=== PATIENT | female | born 1975 ===

== ENCOUNTER 2017-08-29 16:51 | Emergency (ER) | payer SELFPAY ==
[2017-08-29 16:51] VITALS: BMI 29.9
[2017-08-29 17:01] VITALS: BP 123/70; PULSE 73; RESP 16; TEMP 97.9; O2SAT 100
--- NOTE | 2017-08-29 17:35 | ED PDOC ---
HPI: Abdomen Time Seen by Provider: 08/29/17 17:03 Chief Complaint (Nursing): Abdominal Pain Chief Complaint (Provider): Abdominal Pain History Per: Patient History/Exam Limitations: no limitations Onset/Duration Of Symptoms: Hrs Outside of [place] travel?: No Current Symptoms Are (Timing): Still Present Severity: None Associated Symptoms: denies: Nausea, Vomiting, Diarrhea Exacerbating Factors: None Alleviating Factors: None Additional Complaint(s): 41 year old female presents to the ED complaining of abdominal pain tat began around 1300. The patient states that she has not had similar symptoms in the past. Patient reports her symptoms began after she had breakfast. Denies diarrhea and vomiting but does note some nausea. Abnormal Vaginal Bleeding: No Past Medical History Reviewed: Historical Data, Nursing Documentation, Vital Signs Vital Signs: Last Vital Signs Temp 97.9 F 08/29/17 16:59 Pulse 73 08/29/17 16:59 Resp 16 08/29/17 16:59 BP 123/70 08/29/17 16:59 Pulse Ox 100 08/30/17 02:30 - Medical History PMH: No Chronic Diseases Denies: Chronic Kidney Disease - Surgical History Surgical History: No Surg Hx - Family History Family History: States: Unknown Family Hx - Living Arrangements Living Arrangements: With Family - Social History Current smoker - smoking cessation education provided: No Ex-Smoker (has not smoked in the last 12 months): No Alcohol: None Drugs: Denies - Home Medications Home Medications: Ambulatory Orders Medication Instructions Recorded Amoxicillin/Clavulanate [Augmentin 1 tab PO BID #14 tab 08/29/17 875 MG-125 MG] Famotidine [Pepcid] 20 mg PO Q12 #14 tab 08/29/17 Ondansetron ODT [Zofran ODT] 4 mg PO Q6 PRN #16 odt 08/29/17 traMADol [Ultram] 50 mg PO Q6 #12 tab 08/29/17 - Allergies Allergies/Adverse Reactions: Allergies Allergy/AdvReac Type Severity Reaction Status Date / Time No Known Allergies Allergy Verified 09/01/14 10:55 Review of Systems ROS Statement: Except As Marked, All Systems Reviewed And Found Negative Gastrointestinal: Positive for: Abdominal Pain (epigastric). Negative for: Nausea, Vomiting, Diarrhea Physical Exam - Physical Exam Appears: Positive for: Non-toxic. Negative for: No Acute Distress (Moderate distress due to pain) Skin: Positive for: Normal Color. Negative for: Rash, Jaundice Eye Exam: Positive for: Normal appearance, EOMI, PERRL ENT: Positive for: Normal ENT Inspection (Well hydrated) Neck: Positive for: Normal, Painless ROM, Supple Cardiovascular/Chest: Positive for: Regular Rate, Rhythm, Chest Non Tender. Negative for: Tachycardia Respiratory: Positive for: Normal Breath Sounds. Negative for: Rales, Rhonchi, Wheezing, Respiratory Distress Gastrointestinal/Abdominal: Positive for: Bowel Sounds, Soft, Tenderness ( epigastric tenderness), Guarding. Negative for: Mass, Rebound Back: Positive for: Normal Inspection. Negative for: L CVA Tenderness, R CVA Tenderness Extremity: Positive for: Normal ROM. Negative for: Tenderness, Deformity, Swelling Neurologic/Psych: Positive for: Alert, Oriented, Gait - Laboratory Results Result Diagrams: 08/29/17 18:00 08/29/17 18:00 - ECG O2 Sat by Pulse Oximetry: 100 (RA) Pulse Ox Interpretation: Normal Medical Decision Making Medical Decision Makin Initial Impression Epigastric pain possible gallbladder disease Initial Plan: * Amylase * CMP * Lipase * CBC * PTT * Prothrombin Time * Toradol 30mg IVP * US ABD Limited * US Gallbladder & Common Duct * Reevaluation Documented by Keisha Pink acting as a scribe for Hari Santana DO. All medical record entries made by the Scribe were at my direction and personally dictated by me. I have reviewed the chart and agree that the record accurately reflects my personal performance of the history, physical exam, medical decision making, and the department course for this patient. I have also personally directed, reviewed, and agree with the discharge instructions and disposition. Disposition - Clinical Impression Clinical Impression: Cholecystitis - Patient ED Disposition Is Patient to be Admitted: Yes Counseled Patient/Family Regarding: Studies Performed - Disposition Disposition Time: 20:00 Condition: STABLE Prescriptions: Amoxicillin/Clavulanate [Augmentin 875 MG-125 MG] 1 tab PO BID #14 tab Famotidine [Pepcid] 20 mg PO Q12 #14 tab Ondansetron ODT [Zofran ODT] 4 mg PO Q6 PRN #16 odt PRN Reason: Nausea/Vomiting traMADol [Ultram] 50 mg PO Q6 #12 tab Instructions: Gallstones Forms: [employer] (Italian) Print Language: TOGOLESE - Pt Status Changed To: Hospital Disposition Of: Inpatient - Admit Certification Admit to Inpatient:: After my assessment, the patient will require hospitalization for at least two midnights. This is because of the severity of symptoms shown, intensity of services needed, and/or the medical risk in this patient being treated as an outpatient.
[2017-08-29 18:25] LABS: BASO % 0.5 % (0.0-2.0); EOS # 0.1 K/uL (0.0-0.7); EOS % 0.6 % (0.0-4.0); HEMOGLOBIN 10.8 g/dL (12.0-16.0); LYMPH # 1.8 K/uL (1.0-4.3); LYMPH % 22.3 % (20.0-40.0); MEAN CELL VOLUME 79.3 fl (81.0-99.0); MEAN CORPUSCULAR HEMOGLOBIN 26.2 pg (27.0-31.0); MEAN PLATELET VOLUME 8.9 fl (7.2-11.7); MONO # 0.4 K/uL (0.0-0.8); MONO % 5.6 % (0.0-10.0); NEUT # 5.6 K/uL (1.8-7.0); NRBC % 0.1 % (0.0-0.0); RBC 4.11 Mil/uL (3.80-5.20); RED CELL DISTRIBUTION WIDTH 14.8 % (11.5-14.5); WHITE BLOOD COUNT 7.9 K/uL (4.8-10.8)
[2017-08-29 18:49] LABS: PARTIAL THROMBOPLASTIN TIME 28.4 Seconds (25.6-37.1); PROTHROMBIN TIME 10.6 Seconds (9.8-13.1)
[2017-08-29 18:55] LABS: ALB/GLOB RATIO 1.2 (1.0-2.1); ALBUMIN 4.2 g/dL (3.5-5.0); ALT/SGPT 36 U/L (9-52); AMYLASE 93 U/L (30-110); AST/SGOT 20 U/L (14-36); BLOOD UREA NITROGEN 9 mg/dl (7-17); CALCIUM 8.8 mg/dL (8.4-10.2); GFR AFRICAN-AMERICAN > 60; GFR NON-AFRICAN AMERICAN > 60; LIPASE 120 U/L (23-300)
--- NOTE | 2017-08-29 19:09 | ED PDOC ---
- Laboratory Results Result Diagrams: 08/29/17 18:00 08/29/17 18:00 - ECG O2 Sat by Pulse Oximetry: 100 (RA) Pulse Ox Interpretation: Normal Interpretation Of Abnormal: Medical Decision Making Medical Decision Making: Patient signed out to provider at [address] Santana pending Ultrasound. 1918 EXAM: US Abdomen Limited, Right Upper Quadrant EXAM DATE/TIME: 08/29/2017 CLINICAL HISTORY: Pain; Abdominal pain; Other: Ruq pain TECHNIQUE: Real-time ultrasound of the right upper quadrant with image documentation. COMPARISON: No relevant comparison exam is available at the time of interpretation. FINDINGS: Limitations: The examination was limited by the patient's body habitus and by patient discomfort. Liver: Increased echogenicity of the liver parenchyma consistent with diffuse fatty infiltration. Focal fatty sparing adjacent to the gallbladder fossa. Hepatomegaly. No intrahepatic biliary ductal dilation. Hepatopetal flow in the main portal vein. Gallbladder: Moderately distended gallbladder. 2.5 cm nonmobile gallstone in the gallbladder neck. Positive sonographic Castillo sign per the community health advocate's report. No gallbladder wall thickening or evident pericholecystic fluid. 12 mm gallbladder polyp versus tumefactive sludge. Common bile duct: The common bile duct is mildly dilated, measuring up to 8 mm in diameter (upper limit of normal is 6 mm). No choledocholithiasis or other source of biliary ductal obstruction is identified. Pancreas: Obscured by bowel gas. Right kidney: No acute findings. Aorta: The visualized abdominal aorta is normal in caliber. Inferior vena cava: The imaged IVC is normal in caliber. Free fluid: No free fluid is visualized in the imaged portion of the peritoneal cavity. IMPRESSION: 1. Gallbladder findings as described above are most consistent with early acute cholecystitis. 2. Mildly dilated common bile duct. No choledocholithiasis or other source of biliary ductal obstruction is identified. If clinically warranted, further evaluation could be obtained with an MRCP. 3. Hepatomegaly. Diffuse fatty infiltration of the liver with focal fatty sparing adjacent to the gallbladder fossa. 2016 Patient states that her pain has improved remarkedly. Surgical consult was discussed with the patient however she states that she feels well enough to follow up with the clinic. Arrangements have been made with Dr. Dick for a rapid follow up and for out patient GI and surgical consult. Diagnosis: cholecystitis Condition: Stable Follow up: Dr. Dick Documented by Keisha Pink acting as a scribe for Jose Manuel Gonzales MD. All medical record entries made by the Scribe were at my direction and personally dictated by me. I have reviewed the chart and agree that the record accurately reflects my personal performance of the history, physical exam, medical decision making, and the department course for this patient. I have also personally directed, reviewed, and agree with the discharge instructions and disposition. Disposition Counseled Patient/Family Regarding: Studies Performed, Need For Followup - Clinical Impression Clinical Impression: Cholecystitis - POA Present On Arrival: None - Disposition Disposition: Routine/Home Disposition Time: 20:16 Condition: STABLE Prescriptions: Amoxicillin/Clavulanate [Augmentin 875 MG-125 MG] 1 tab PO BID #14 tab Famotidine [Pepcid] 20 mg PO Q12 #14 tab Ondansetron ODT [Zofran ODT] 4 mg PO Q6 PRN #16 odt PRN Reason: Nausea/Vomiting traMADol [Ultram] 50 mg PO Q6 #12 tab Instructions: Gallstones Forms: [facility] [employer] (Pashto) Print Language: [place] IS[place]
[2017-08-29] MEDS ORDERED: Piperacillin/Tazobact 3.375 GM in Sodium Chloride 0.9% 100 ML IV STA (19:33)
[2017-08-29] MEDS ORDERED: Piperacillin/Tazobact 3.375 gm Inj IVPB ONE (20:35)
[2017-08-29] MEDS: Potassium CL 10mEq/100ml 100 ML IVPB SCH ×2 (22:20→23:20)
--- NOTE | 2017-08-30 13:41 | US ---
HISTORY: ruq pain COMPARISON: None. TECHNIQUE: Sonographic evaluation of the abdomen. FINDINGS: LIVER: Measures cm. Heterogeneous echogenicity of the liver parenchyma. No mass. No intrahepatic bile duct dilatation. GALLBLADDER: Gallstones in the body and neck with minimal pericholecystic fluid ; correlate clinically for acute cholecystitis. COMMON BILE DUCT: Measures mm. No stones. No dilatation. PANCREAS: Unremarkable as visualized. No mass. No ductal dilatation. RIGHT KIDNEY: Measures cm. Normal echogenicity. No calculus, mass, or hydronephrosis. AORTA: No aneurysmal dilatation. IVC: Unremarkable. OTHER FINDINGS: None. IMPRESSION: Gallstones in the body and neck with minimal pericholecystic fluid ; correlate clinically for acute cholecystitis. Fatty liver.
== END 2017-08-30 00:40 | disposition home or self-care (01) ==
LOC: H.ER 16:51
DX: K81.9 Cholecystitis, unspecified (principal); Z87.891 Personal history of nicotine dependence
CPT/HCPCS: 76705; 80053; 81025; 82150; 83690; 85025; 85610; 85730; 87040; 96374; 99283; J1885; J2543; J3480

== ENCOUNTER 2017-12-18 09:34 | Emergency (ER) | payer SELFPAY ==
[2017-12-18 09:43] VITALS: BMI 30.2
[2017-12-18 09:45] VITALS: O2SAT 99
--- NOTE | 2017-12-18 11:00 | ED PDOC ---
HPI: Influenza Time Seen by Provider: 12/18/17 10:15 Chief Complaint: Cough, Cold, Congestion Chief Complaint (Provider): Cough, Congestion History Per: Patient Exam Limitations: no limitations Onset/Duration Of Symptoms: Days (x15) Symptoms include: cough Additional complaint(s):: 42 y/o female with no significant pmhx, who presents to ED for evaluation of cough and nasal congestion x15 days. Patient reports cough is productive of green sputum and some chest pain. She denies fever, chills, rhinorrhea, sore throat, abdominal pain, shortness of breath, nausea, vomiting, diarrhea, rash, and headache. Chest pain only on cough. Past Medical History Reviewed: Historical Data, Nursing Documentation, Vital Signs Vital Signs: Last Vital Signs Temp 98.1 F 12/18/17 09:44 Pulse 87 12/18/17 09:44 Resp 20 12/18/17 09:44 BP 119/71 12/18/17 09:44 Pulse Ox 99 12/18/17 09:44 - Medical History PMH: No Chronic Diseases Denies: Chronic Kidney Disease - Surgical History Surgical History: No Surg Hx - Family History Family History: States: Unknown Family Hx - Home Medications Home Medications: Ambulatory Orders Medication Instructions Recorded Amoxicillin/Clavulanate [Augmentin 1 tab PO BID #14 tab 08/29/17 875 MG-125 MG] Famotidine [Pepcid] 20 mg PO Q12 #14 tab 08/29/17 Ondansetron ODT [Zofran ODT] 4 mg PO Q6 PRN #16 odt 08/29/17 traMADol [Ultram] 50 mg PO Q6 #12 tab 08/29/17 Benzonatate [Tessalon Perles] 100 mg PO BID PRN 5 Days sgl 12/18/17 Ibuprofen [Motrin] 600 mg PO TID 7 Days tab 12/18/17 - Allergies Allergies/Adverse Reactions: Allergies Allergy/AdvReac Type Severity Reaction Status Date / Time No Known Allergies Allergy Verified 12/18/17 10:11 Review of Systems ROS Statement: Except As Marked, All Systems Reviewed And Found Negative Constitutional: Negative for: Fever, Chills ENT: Positive for: Nose Congestion. Negative for: Nose Discharge, Throat Pain Cardiovascular: Positive for: Chest Pain Respiratory: Positive for: Cough, Sputum (green). Negative for: Shortness of Breath Gastrointestinal: Negative for: Nausea, Vomiting, Abdominal Pain, Diarrhea Skin: Negative for: Rash Neurological: Negative for: Headache Physical Exam - Reviewed Nursing Documentation Reviewed: Yes Vital Signs Reviewed: Yes - Physical Exam Appears: Positive for: Non-toxic, No Acute Distress Head Exam: Positive for: ATRAUMATIC, NORMAL INSPECTION, NORMOCEPHALIC Skin: Positive for: Normal Color, Warm, Dry. Negative for: Rash Eye Exam: Positive for: EOMI, Normal appearance, PERRL ENT: Positive for: Nasal Congestion Neck: Positive for: Normal, Painless ROM, Supple Cardiovascular/Chest: Positive for: Regular Rate, Rhythm. Negative for: Edema, Murmur Respiratory: Positive for: Normal Breath Sounds. Negative for: Respiratory Distress Gastrointestinal/Abdominal: Positive for: Normal Exam, Soft. Negative for: Tenderness Back: Positive for: Normal Inspection. Negative for: L CVA Tenderness, R CVA Tenderness, Vertebral Tenderness Extremity: Positive for: Normal ROM. Negative for: Pedal Edema, Deformity Neurologic/Psych: Positive for: Alert, Oriented. Negative for: Motor/Sensory Deficits Medical Decision Making Medical Decision Makin:01 Impression: Eval cough Plan: --EKG --BMP --Troponin --CBC --CXR --Sodium Chloride 500mls --Benzonatate 100mg PO --Toradol 15mg IVP --Reevaluation ----- Scribe Attestation: Documented by Mello Jacobs, acting as a scribe for Connor Lal MD. Provider Scribe Attestation: All medical record entries made by the Scribe were at my direction and personally dictated by me. I have reviewed the chart and agree that the record accurately reflects my personal performance of the history, physical exam, medical decision making, and the department course for this patient. I have also personally directed, reviewed, and agree with the discharge instructions and disposition. - Laboratory Results Result Diagrams: 12/18/17 12:23 12/18/17 12:23 Interpretation Of Abn Labs: no acute - ECG ECG: Positive for: Interpreted By Me, Viewed By Me ECG Rhythm: Positive for: Normal QRS, Normal ST Segment, Sinus Rhythm O2 Sat by Pulse Oximetry: 99 (RA) Pulse Ox Interpretation: Normal - Radiology X-Ray: Read By Radiologist X-Ray Interpretation: No Acute Disease - Progress ED Course And Treament: 1401: Stable. AAOx3. Pain free. Tolerated PO. Fu with pcp. Disposition - Clinical Impression Clinical Impression: URI (upper respiratory infection), Chest pain - Patient ED Disposition Is Patient to be Admitted: No Counseled Patient/Family Regarding: Studies Performed, Diagnosis, Need For Followup, Rx Given - Disposition Referrals: [facility] [Outside] - 12/21/17 Disposition: Routine/Home Disposition Time: 14:02 Condition: FAIR Additional Instructions: Return if not better in 3 days. Prescriptions: Benzonatate [Tessalon Perles] 100 mg PO BID PRN 5 Days sgl PRN Reason: Cough Ibuprofen [Motrin] 600 mg PO TID 7 Days tab Instructions: Chest Pain, Viral Upper Respiratory Infection, Adult (DC) Forms: [facility] ED School/Work Excuse
[2017-12-18] MEDS ORDERED: Sodium Chloride 0.9% 500 ML IV STA (11:02)
--- NOTE | 2017-12-18 11:43 | RAD ---
HISTORY: CHEST PAIN COMPARISON: Comparison chest 09/13/2013 TECHNIQUE: Chest PA and lateral FINDINGS: LUNGS: Poor inspiration with low lung volumes, crowded bronchovascular markings and mild bibasilar atelectasis. PLEURA: No significant pleural effusion identified. No pneumothorax apparent. CARDIOVASCULAR: Normal. OSSEOUS STRUCTURES: No significant abnormalities. VISUALIZED UPPER ABDOMEN: Normal. OTHER FINDINGS: None. IMPRESSION: Poor inspiration with low lung volumes, crowded bronchovascular markings and mild bibasilar atelectasis.
[2017-12-18 12:40] LABS: BASO % 0.4 % (0.0-2.0); EOS # 0.1 K/uL (0.0-0.7); EOS % 3.5 % (0.0-4.0); HEMOGLOBIN 11.6 g/dL (12.0-16.0); LYMPH # 1.5 K/uL (1.0-4.3); LYMPH % 43.5 % (20.0-40.0); MEAN CELL VOLUME 79.2 fl (81.0-99.0); MEAN CORPUSCULAR HGB CONC 32.8 g/dL (33.0-37.0); MEAN PLATELET VOLUME 9.2 fl (7.2-11.7); MONO # 0.3 K/uL (0.0-0.8); MONO % 7.7 % (0.0-10.0); NEUT # 1.6 K/uL (1.8-7.0); NEUT % 44.9 % (50.0-75.0); NRBC % 0.2 % (0.0-0.0); RBC 4.46 Mil/uL (3.80-5.20)
[2017-12-18 12:46] LABS: BLOOD UREA NITROGEN 10 mg/dl (7-17); CALCIUM 8.7 mg/dL (8.4-10.2); GFR AFRICAN-AMERICAN > 60; GFR NON-AFRICAN AMERICAN > 60
[2017-12-18 12:48] LABS: WHITE BLOOD COUNT 3.5 K/uL (4.8-10.8)
[2017-12-18 15:10] VITALS: BP 121/68; PULSE 77; RESP 15; TEMP 98.4
--- NOTE | 2017-12-18 16:03 | CARD ---
APPROVED REPORT EKG Measurement Heart [id number] <Conclusion> Normal sinus rhythm Normal ECG
== END 2017-12-18 15:10 | disposition home or self-care (01) ==
LOC: H.ER 09:34
DX: J06.9 Acute upper respiratory infection, unspecified (principal); R07.89 Other chest pain
CPT/HCPCS: 71046; 80048; 81025; 84484; 85025; 93005; 96374; 99283; J1885; J7040